=== PATIENT | female | born 1950 | race Caucasian/White ===

== ENCOUNTER 2017-03-22 06:31 | Day surgery (SDC) | payer MEDICARE, BC ==
[2017-03-22] MEDS ORDERED: Lactated Ringers 1,000 ML IV SCH (07:00)
[2017-03-22] MEDS ORDERED: Propofol 200 MG/20 ML SDV ONE (07:26)
[2017-03-22] MEDS ORDERED: fentaNYL 100 MCG/2 ML SDV ONE (07:26)
[2017-03-22] MEDS ORDERED: Midazolam 1 MG/ML 2 ML SDV ONE (07:27)
[2017-03-22 09:07] VITALS: BP 110/72
--- NOTE | 2017-03-23 07:42 | OR ---
DATE OF PROCEDURE: 03/22/2017 PREOPERATIVE DIAGNOSIS: Colon cancer screening. POSTOPERATIVE DIAGNOSIS: Unremarkable colonoscopy. PROCEDURE PERFORMED: Colonoscopy to the cecum. SURGEON: Omar De Luna MD. ANESTHESIA: IV anesthesia with monitored anesthesia care. INDICATION: This 66-year-old white female is referred for a colonoscopy for colon cancer screening. She says her last colonoscopic exam was done ten years ago. I counseled her for the procedure including the risks and alternatives, and she gave her informed consent to proceed. DESCRIPTION OF PROCEDURE: The patient was placed in the left lateral decubitus position. IV anesthesia was administered by the Anesthesia Service. Time-out was held. A rectal exam was performed, which was unremarkable. The flexible video Olympus colonoscope was introduced through her anus, up her rectum, and out her colon all the way to the cecum. Once the cecum was reached, the scope was slowly withdrawn, examining the mucosa throughout. No mucosal abnormalities were noted. The scope was retroflexed in the rectum with the distal rectum appearing unremarkable. The scope was straightened and removed. She tolerated the procedure well. Omar De Luna MD /[id number]
== END 2017-03-22 09:19 | disposition home or self-care (01) ==
LOC: JP.SDS 06:31
PROVIDERS: ATTEND Surgery
DX: Z12.11 Encounter for screening for malignant neoplasm of colon (principal); I10 Essential (primary) hypertension; E78.00 Pure hypercholesterolemia, unspecified; E20.9 Hypoparathyroidism, unspecified; E66.9 Obesity, unspecified; Z88.8 Allergy status to other drugs, medicaments and biological substances; Z90.710 Acquired absence of both cervix and uterus; Z87.891 Personal history of nicotine dependence; Z68.30 Body mass index [BMI] 30.0-30.9, adult
CPT/HCPCS: G0121; J2250; J2704; J3010; J7120

== ENCOUNTER 2022-07-17 05:47 | Day surgery (SDC) | payer MEDICARE ==
[2022-07-17] MEDS ORDERED: Lactated Ringers 1,000 ML IV SCH (06:30)
[2022-07-17] MEDS ORDERED: Propofol 200 MG/20 ML SDV ONE (06:56)
[2022-07-17] MEDS ORDERED: Midazolam 1 MG/ML 2 ML SDV ONE (06:56)
[2022-07-17] MEDS ORDERED: fentaNYL 50 MCG/ML SDV ONE (06:56)
[2022-07-17 08:27] VITALS: BP 125/71; PULSE 87
== END 2022-07-17 08:35 | disposition home or self-care (01) ==
LOC: JP.SDS 05:47
PROVIDERS: ATTEND Student in an Organized Health Care Education/Training Program
DX: Z12.11 Encounter for screening for malignant neoplasm of colon (principal); I10 Essential (primary) hypertension; E78.5 Hyperlipidemia, unspecified; E03.9 Hypothyroidism, unspecified; E66.9 Obesity, unspecified; M79.10 Myalgia, unspecified site; G62.9 Polyneuropathy, unspecified; Z68.31 Body mass index [BMI] 31.0-31.9, adult; Z79.899 Other long term (current) drug therapy; Z88.8 Allergy status to other drugs, medicaments and biological substances
CPT/HCPCS: 45378; J2250; J2704; J3010; J7120

== ENCOUNTER 2022-12-15 00:51 | Emergency (ER) | payer MEDICARE ==
[2022-12-15] MEDS ORDERED: Sodium Chloride 0.9% 10 ML Syringe FLUSH PRN (01:04)
[2022-12-15 01:17] LABS: BASOPHILS ABSOLUTE AUTO 0.04 K/uL (0.00-0.10); BASOPHILS PERCENT AUTO 1.3 % (0.1-1.3); HEMATOCRIT 37.4 % (34.3-46.0); HEMOGLOBIN 12.2 g/dL (11.2-15.5); IMMATURE GRAN PERCENT AUTO 0.3 % (0.0-0.7); LYMPHOCYTES ABSOLUTE AUTO 0.34 K/uL (0.8-3.3); LYMPHOCYTES PERCENT AUTO 10.6 % (11.4-47.7); MEAN CORPUSCULAR HEMOGLOBIN 31.4 pg (31.6-35.5); MEAN CORPUSCULAR HGB CONC 32.6 g/dL (31.6-35.5); MEAN CORPUSCULAR VOLUME 96.1 fL (81.4-99.0); MONOCYTES ABSOLUTE AUTO 0.35 K/uL (0.20-0.90); MONOCYTES PERCENT AUTO 10.9 % (3.3-12.6); NEUTROPHILS ABSOLUTE AUTO 2.46 K/uL (1.0-7.6); NEUTROPHILS PERCENT AUTO 76.9 % (40.0-78.1); PLATELET COUNT,PLT 138 K/uL (130-375); RED BLOOD CELL COUNT 3.89 M/uL (3.77-5.24); WHITE BLOOD CELL COUNT,WBC 3.2 K/uL (3.2-11.0)
[2022-12-15 01:23] LABS: IMMATURE GRAN ABSOLUTE AUTO 0.01 K/uL (0.00-0.23)
[2022-12-15 01:39] LABS: A/G RATIO 0.8 (1.2-2.2); ALANINE AMINOTRANSFERASE,ALT 29 U/L (12-78); ALBUMIN 2.4 g/dL (3.4-5.0); ALKALINE PHOSPHATASE 117 U/L (46-116); ASPARTATE AMNIOTRANSFERASE,AST 31 U/L (15-37); BILIRUBIN TOTAL 0.6 mg/dL (0.2-1.0); BLOOD UREA NITROGEN,BUN 15 mg/dL (7-18); C-REACTIVE PROTEIN 1.71 mg/dL (0.0-0.3); CALCIUM 7.7 mg/dL (8.5-10.1); CARBON DIOXIDE,CO2 26 mmol/L (21-32); CHLORIDE,CL 106 mmol/L (100-108); CREATININE 1.1 mg/dL (0.6-1.0); EST CRCL DRUG DOSING (CG) 42.82 mL/min; ESTIMATED GFR 54 mL/min (>60); GLUCOSE RANDOM 194 mg/dL (74-106); MAGNESIUM 1.9 mg/dL (1.8-2.4); PROTEIN TOTAL,TP 5.5 g/dL (6.4-8.2); SODIUM,NA 139 mmol/L (140-148)
[2022-12-15] MEDS: Sodium Chloride 0.9% 1,000 ML IV SCH ×2 (01:39→03:47)
[2022-12-15 01:42] LABS: LACTIC ACID 1.2 mmol/L (0.4-2.0)
[2022-12-15] MEDS ORDERED: Potassium Chloride 20 MEQ Tab.ER PO ONE (02:21)
[2022-12-15 02:58] LABS: HEMOGLOBIN A1C 5.4 % (4.5-6.2)
[2022-12-15] MEDS ORDERED: Sodium Chloride 0.9% 1,000 ML IV SCH (05:15)
[2022-12-15 07:11] LABS: APPEARANCE,URINE SLIGHTLY CLOUDY (CLEAR); BILIRUBIN,URINE NEGATIVE (NEGATIVE); COLOR,URINE YELLOW (YELLOW); GLUCOSE,URINE NEGATIVE (NEGATIVE); KETONES,URINE NEGATIVE (NEGATIVE); LEUKOCYTE ESTERASE,URINE SMALL (NEGATIVE); NITRITE,URINE NEGATIVE (NEGATIVE); OCCULT BLOOD,URINE TRACE-LYSED (NEGATIVE); PH,URINE 5.5 (5.0-8.0); PROTEIN,URINE 100 mg/dL (NEGATIVE); UROBILINOGEN,URINE 0.2 EU/dL (0.2-1.0)
[2022-12-15 07:20] LABS: AMORPHOUS SEDIMENT,URINE MANY; BACTERIA,URINE FEW; EPITHELIAL CELLS,URINE MANY; MUCUS,URINE MANY; RBC,URINE 0-5 (0-5)
[2022-12-15 07:44] LABS: LYME AB IgG Negative (Negative); LYME AB IgM Negative (Negative)
[2022-12-15 08:04] VITALS: BP 115/61; PULSE 82
[2022-12-18 15:12] LABS: BABESIA MICROTI IGG <1:10 (Neg:<1:10); BABESIA MICROTI IGM <1:10 (Neg:<1:10)
== END 2022-12-15 10:43 | disposition home or self-care (01) ==
LOC: JP.ED 00:51
DX: I67.89 Other cerebrovascular disease (principal); E86.0 Dehydration; M25.552 Pain in left hip; G89.29 Other chronic pain; E87.6 Hypokalemia; M06.9 Rheumatoid arthritis, unspecified; E78.00 Pure hypercholesterolemia, unspecified; I10 Essential (primary) hypertension; E66.9 Obesity, unspecified; Z88.8 Allergy status to other drugs, medicaments and biological substances; Z79.899 Other long term (current) drug therapy; Z68.31 Body mass index [BMI] 31.0-31.9, adult; Z20.822 Contact with and (suspected) exposure to COVID-19
CPT/HCPCS: 36415; 80053; 81001; 82009; 83036; 83605; 83735; 84145; 85025; 86140; 86618; 86666; 86753; 96360; 96361; 99285; A9270; J3490; J7030; U0002

== ENCOUNTER 2022-12-15 17:57 | Inpatient (IN) | payer MEDICARE ==
[2022-12-15 18:48] LABS: BASOPHILS ABSOLUTE AUTO 0.05 K/uL (0.00-0.10); BASOPHILS PERCENT AUTO 2.2 % (0.1-1.3); EOSINOPHILS PERCENT AUTO 0.4 % (0.0-5.4); HEMATOCRIT 36.9 % (34.3-46.0); HEMOGLOBIN 11.9 g/dL (11.2-15.5); IMMATURE GRAN PERCENT AUTO 0.4 % (0.0-0.7); LYMPHOCYTES ABSOLUTE AUTO 0.38 K/uL (0.8-3.3); LYMPHOCYTES PERCENT AUTO 16.5 % (11.4-47.7); MEAN CORPUSCULAR HGB CONC 32.2 g/dL (31.6-35.5); MEAN CORPUSCULAR VOLUME 96.1 fL (81.4-99.0); MONOCYTES ABSOLUTE AUTO 0.14 K/uL (0.20-0.90); MONOCYTES PERCENT AUTO 6.1 % (3.3-12.6); NEUTROPHILS ABSOLUTE AUTO 1.72 K/uL (1.0-7.6); NEUTROPHILS PERCENT AUTO 74.4 % (40.0-78.1); PLATELET COUNT,PLT 131 K/uL (130-375); RED BLOOD CELL COUNT 3.84 M/uL (3.77-5.24); WHITE BLOOD CELL COUNT,WBC 2.3 K/uL (3.2-11.0)
[2022-12-15 18:51] LABS: EOSINOPHILS ABSOLUTE AUTO 0.01 K/uL (0.00-0.40); IMMATURE GRAN ABSOLUTE AUTO 0.01 K/uL (0.00-0.23)
[2022-12-15 19:17] LABS: A/G RATIO 0.8 (1.2-2.2); ALANINE AMINOTRANSFERASE,ALT 30 U/L (12-78); ALBUMIN 2.4 g/dL (3.4-5.0); ALKALINE PHOSPHATASE 118 U/L (46-116); ANION GAP 10.3 mmol/L (5.0-14.0); ASPARTATE AMNIOTRANSFERASE,AST 36 U/L (15-37); BILIRUBIN TOTAL 0.6 mg/dL (0.2-1.0); BLOOD UREA NITROGEN,BUN 13 mg/dL (7-18); C-REACTIVE PROTEIN 2.47 mg/dL (0.0-0.3); CALCIUM 7.9 mg/dL (8.5-10.1); CARBON DIOXIDE,CO2 24 mmol/L (21-32); CHLORIDE,CL 107 mmol/L (100-108); CREATININE 0.8 mg/dL (0.6-1.0); ESTIMATED GFR 79 mL/min (>60); GLUCOSE RANDOM 120 mg/dL (74-106); POTASSIUM,K 3.3 mmol/L (3.6-5.2); PROTEIN TOTAL,TP 5.5 g/dL (6.4-8.2); SODIUM,NA 138 mmol/L (140-148)
[2022-12-15 21:00] LABS: APPEARANCE,URINE CLOUDY (CLEAR); BILIRUBIN,URINE NEGATIVE (NEGATIVE); COLOR,URINE YELLOW (YELLOW); GLUCOSE,URINE NEGATIVE (NEGATIVE); KETONES,URINE NEGATIVE (NEGATIVE); LEUKOCYTE ESTERASE,URINE MODERATE (NEGATIVE); NITRITE,URINE NEGATIVE (NEGATIVE); OCCULT BLOOD,URINE SMALL (NEGATIVE); PH,URINE 5.5 (5.0-8.0); PROTEIN,URINE TRACE mg/dL (NEGATIVE); UROBILINOGEN,URINE 0.2 EU/dL (0.2-1.0)
[2022-12-15] MEDS ORDERED: Pantoprazole 40 MG Vial IV SCH (21:00)
[2022-12-15 21:05] LABS: RBC,URINE 0-5 (0-5); WBC,URINE 75-100 (0-5)
[2022-12-15 21:06] LABS: AMORPHOUS SEDIMENT,URINE NOT SEEN; BACTERIA,URINE MODERATE; EPITHELIAL CELLS,URINE MODERATE; MUCUS,URINE FEW
[2022-12-15] MEDS ORDERED: Albuterol 0.083% 2.5 MG/3 ML Neb Soln NEB PRN (22:05)
[2022-12-15] MEDS ORDERED: oxyCODONE 5 MG Tab PO PRN (22:05)
[2022-12-15] MEDS ORDERED: Ondansetron 4 MG/2 ML SDV IV PRN (22:05)
[2022-12-15] MEDS ORDERED: Ondansetron 4 MG Tab.DIS PO PRN (22:05)
[2022-12-15] MEDS ORDERED: Albuterol/Ipratropium 3.0-0.5 MG/3 ML Neb Soln NEB PRN (22:05)
[2022-12-15] MEDS ORDERED: Bisacodyl 5 MG Tab PO PRN (22:05)
[2022-12-15] MEDS ORDERED: LORazepam 2 MG/ML SDV IV PRN (22:05)
[2022-12-15] MEDS ORDERED: Docusate Sodium 100 MG Cap PO PRN (22:05)
[2022-12-15] MEDS ORDERED: Potassium Chloride 10 MEQ in Premix Bag 1 BAG IV ONE (22:13)
[2022-12-15] MEDS ORDERED: Methotrexate 2.5 MG Tab PO SCH (22:15)
[2022-12-15] MEDS ORDERED: Enoxaparin 40 MG/0.4 ML Syringe SUBCUT SCH (22:15)
[2022-12-15] MEDS ORDERED: Sodium Chloride 0.9% 1,000 ML IV SCH (22:15)
[2022-12-15] MEDS ORDERED: atorvaSTATin 20 MG Tab PO SCH (22:15)
[2022-12-15] MEDS ORDERED: cefTRIAXone 1 GM in Sodium Chloride 0.9% 50 ML IV SCH (23:00)
[2022-12-15] MEDS: Levothyroxine 100 MCG Tab PO SCH (23:16)
[2022-12-15] MEDS: Folic Acid 1 MG Tab PO SCH (23:16)
[2022-12-15] MEDS: Melatonin 3 MG Tab PO SCH (23:17)
[2022-12-16 05:24] LABS: HEMATOCRIT 34.6 % (34.3-46.0); HEMOGLOBIN 11.4 g/dL (11.2-15.5); LYMPHOCYTES PERCENT AUTO 19.4 % (11.4-47.7); MEAN CORPUSCULAR HEMOGLOBIN 31.1 pg (31.6-35.5); MEAN CORPUSCULAR HGB CONC 32.9 g/dL (31.6-35.5); MEAN CORPUSCULAR VOLUME 94.5 fL (81.4-99.0); MONOCYTES ABSOLUTE AUTO 0.13 K/uL (0.20-0.90); MONOCYTES PERCENT AUTO 6.3 % (3.3-12.6); NEUTROPHILS ABSOLUTE AUTO 1.49 K/uL (1.0-7.6); NEUTROPHILS PERCENT AUTO 72.3 % (40.0-78.1); PLATELET COUNT,PLT 108 K/uL (130-375); RED BLOOD CELL COUNT 3.66 M/uL (3.77-5.24); WHITE BLOOD CELL COUNT,WBC 2.1 K/uL (3.2-11.0)
[2022-12-16 05:34] LABS: BASOPHILS ABSOLUTE AUTO 0.02 K/uL (0.00-0.10); IMMATURE GRAN ABSOLUTE AUTO 0.02 K/uL (0.00-0.23)
[2022-12-16 05:42] LABS: CALCIUM 7.5 mg/dL (8.5-10.1); CREATININE 0.8 mg/dL (0.6-1.0); EST CRCL DRUG DOSING (CG) 58.88 mL/min; POTASSIUM,K 3.2 mmol/L (3.6-5.2)
[2022-12-16 05:46] LABS: ANION GAP 10.2 mmol/L (5.0-14.0)
[2022-12-16] MEDS: Folic Acid 1 MG Tab PO SCH (09:27)
[2022-12-16] MEDS: Potassium Chloride 20 MEQ Tab.ER PO SCH (09:27)
[2022-12-16] MEDS: Hydrochlorothiazide 12.5 MG Cap PO SCH (09:27)
[2022-12-16] MEDS: Levothyroxine 100 MCG Tab PO SCH (09:27)
[2022-12-16] MEDS: Lisinopril 10 MG Tab PO SCH (09:28)
[2022-12-16] MEDS: Sodium Chloride 0.9% 1,000 ML IV SCH (11:02)
[2022-12-16] MEDS: Acetaminophen 325 MG Tab PO PRN ×3 (11:34→22:31)
[2022-12-16] MEDS: LEFLUNOMIDE 20 MG PO SCH ×2 (11:35→11:36)
[2022-12-16] MEDS ORDERED: Potassium Chloride 20 MEQ Tab.ER PO SCH (17:00)
[2022-12-16] MEDS ORDERED: Enoxaparin 40 MG/0.4 ML Syringe SUBCUT SCH (21:00)
[2022-12-16] MEDS: Melatonin 3 MG Tab PO SCH (21:04)
[2022-12-16] MEDS: atorvaSTATin 20 MG Tab PO SCH (21:05)
[2022-12-17 05:28] LABS: HEMATOCRIT 37.9 % (34.3-46.0); HEMOGLOBIN 12.3 g/dL (11.2-15.5); MEAN CORPUSCULAR HEMOGLOBIN 30.9 pg (31.6-35.5); MEAN CORPUSCULAR HGB CONC 32.5 g/dL (31.6-35.5); MEAN CORPUSCULAR VOLUME 95.2 fL (81.4-99.0); RED BLOOD CELL COUNT 3.98 M/uL (3.77-5.24); WHITE BLOOD CELL COUNT,WBC 2.2 K/uL (3.2-11.0)
[2022-12-17 05:42] LABS: CALCIUM 7.9 mg/dL (8.5-10.1); CREATININE 0.9 mg/dL (0.6-1.0); EST CRCL DRUG DOSING (CG) 52.34 mL/min
[2022-12-17] MEDS: Levothyroxine 100 MCG Tab PO SCH (07:14)
[2022-12-17] MEDS: Acetaminophen 325 MG Tab PO PRN ×4 (07:14→20:56)
[2022-12-17] MEDS: Sodium Chloride 0.9% 1,000 ML IV SCH (08:31)
[2022-12-17] MEDS: LEFLUNOMIDE 20 MG PO SCH (08:57)
[2022-12-17] MEDS: Folic Acid 1 MG Tab PO SCH (08:59)
[2022-12-17] MEDS: Lisinopril 10 MG Tab PO SCH (08:59)
[2022-12-17] MEDS: Hydrochlorothiazide 12.5 MG Cap PO SCH (08:59)
[2022-12-17] MEDS: Potassium Chloride 20 MEQ Tab.ER PO SCH (09:00)
[2022-12-17] MEDS ORDERED: Doxycycline 100 MG in Sodium Chloride 0.9% 100 ML IV SCH (09:00)
[2022-12-17 10:17] LABS: LYME AB IgG Negative (Negative); LYME AB IgM Negative (Negative)
[2022-12-17] MEDS: Melatonin 3 MG Tab PO SCH (20:56)
[2022-12-17] MEDS: Doxycycline 100 MG Cap PO SCH (20:56)
[2022-12-17] MEDS: atorvaSTATin 20 MG Tab PO SCH (20:56)
[2022-12-18] MEDS: Acetaminophen 325 MG Tab PO PRN ×3 (00:40→22:43)
[2022-12-18 06:22] LABS: HEMATOCRIT 34.2 % (34.3-46.0); HEMOGLOBIN 11.4 g/dL (11.2-15.5); MEAN CORPUSCULAR HEMOGLOBIN 31.1 pg (31.6-35.5); MEAN CORPUSCULAR HGB CONC 33.3 g/dL (31.6-35.5); MEAN CORPUSCULAR VOLUME 93.2 fL (81.4-99.0); RED BLOOD CELL COUNT 3.67 M/uL (3.77-5.24); WHITE BLOOD CELL COUNT,WBC 1.6 K/uL (3.2-11.0)
[2022-12-18 06:38] LABS: A/G RATIO 0.7 (1.2-2.2); ALANINE AMINOTRANSFERASE,ALT 32 U/L (12-78); ALBUMIN 1.9 g/dL (3.4-5.0); ALKALINE PHOSPHATASE 137 U/L (46-116); ASPARTATE AMNIOTRANSFERASE,AST 66 U/L (15-37); BILIRUBIN TOTAL 2.1 mg/dL (0.2-1.0); BLOOD UREA NITROGEN,BUN 8 mg/dL (7-18); CALCIUM 7.7 mg/dL (8.5-10.1); CARBON DIOXIDE,CO2 27 mmol/L (21-32); CHLORIDE,CL 107 mmol/L (100-108); CREATININE 0.8 mg/dL (0.6-1.0); EST CRCL DRUG DOSING (CG) 58.79 mL/min; ESTIMATED GFR 79 mL/min (>60); GLUCOSE RANDOM 88 mg/dL (74-106); POTASSIUM,K 3.6 mmol/L (3.6-5.2); PROTEIN TOTAL,TP 4.6 g/dL (6.4-8.2); SODIUM,NA 139 mmol/L (140-148)
[2022-12-18 06:41] LABS: ANION GAP 8.6 mmol/L (5.0-14.0)
[2022-12-18] MEDS: Levothyroxine 100 MCG Tab PO SCH (09:04)
[2022-12-18] MEDS: Potassium Chloride 20 MEQ Tab.ER PO SCH (09:06)
[2022-12-18] MEDS: Lisinopril 10 MG Tab PO SCH (09:06)
[2022-12-18] MEDS: Hydrochlorothiazide 12.5 MG Cap PO SCH (09:07)
[2022-12-18] MEDS: Folic Acid 1 MG Tab PO SCH (09:07)
[2022-12-18] MEDS: LEFLUNOMIDE 20 MG PO SCH (09:07)
[2022-12-18] MEDS: Doxycycline 100 MG Cap PO SCH ×2 (09:08→21:35)
[2022-12-18 18:12] LABS: BANDS 6 % (Not Estab.); BASOS 1 % (Not Estab.); EOS 0 % (Not Estab.); HEMATOCRIT 38.7 % (34.0-46.6); HEMATOLOGY COMMENTS: Note: (.); HEMOGLOBIN 12.6 g/dL (11.1-15.9); IMMATURE CELLS Note (.); LYMPHS 19 % (Not Estab.); LYMPHS (ABSOLUTE) 0.4 x10E3/uL (0.7-3.1); MCH 31.7 pg (26.6-33.0); MCHC 32.6 g/dL (31.5-35.7); MCV 97 fL (79-97); METAMYELOCYTES 4 % (0 - 0); MONOCYTES 2 % (Not Estab.); MYELOCYTES 1 % (0 - 0); NEUTROPHILS 67 % (Not Estab.); NEUTROPHILS (ABSOLUTE) 1.5 x10E3/uL (1.4-7.0); PLATELETS 89 x10E3/uL (150-450); RBC 3.98 x10E6/uL (3.77-5.28); RBC Appear normal. (.); RDW 15.2 % (11.7-15.4); WBC 2.1 x10E3/uL (3.4-10.8)
[2022-12-18] MEDS: Melatonin 3 MG Tab PO SCH (21:35)
[2022-12-18] MEDS: atorvaSTATin 20 MG Tab PO SCH (21:35)
[2022-12-19] MEDS: Levothyroxine 100 MCG Tab PO SCH (07:41)
[2022-12-19] MEDS: Folic Acid 1 MG Tab PO SCH (08:59)
[2022-12-19] MEDS: Doxycycline 100 MG Cap PO SCH ×2 (08:59→20:38)
[2022-12-19] MEDS: Hydrochlorothiazide 12.5 MG Cap PO SCH (08:59)
[2022-12-19] MEDS ORDERED: Methotrexate 2.5 MG Tab PO SCH ×2 (09:00→21:00)
[2022-12-19] MEDS: Potassium Chloride 20 MEQ Tab.ER PO SCH (09:00)
[2022-12-19] MEDS: LEFLUNOMIDE 20 MG PO SCH (09:00)
[2022-12-19] MEDS: Lisinopril 10 MG Tab PO SCH (09:01)
[2022-12-19 10:18] LABS: HEMATOCRIT 37.7 % (34.3-46.0); HEMOGLOBIN 12.6 g/dL (11.2-15.5); MEAN CORPUSCULAR HGB CONC 33.4 g/dL (31.6-35.5); MEAN CORPUSCULAR VOLUME 92.9 fL (81.4-99.0); RED BLOOD CELL COUNT 4.06 M/uL (3.77-5.24); WHITE BLOOD CELL COUNT,WBC 3.8 K/uL (3.2-11.0)
[2022-12-19] MEDS: Acetaminophen 325 MG Tab PO PRN (10:25)
[2022-12-19] MEDS ORDERED: Ketorolac 15 MG/ML SDV IVPUSH ONE (11:00)
[2022-12-19] MEDS: Melatonin 3 MG Tab PO SCH (20:35)
[2022-12-19] MEDS: atorvaSTATin 20 MG Tab PO SCH (20:35)
[2022-12-20 05:12] LABS: HEMATOCRIT 31.7 % (34.3-46.0); HEMOGLOBIN 10.6 g/dL (11.2-15.5); MEAN CORPUSCULAR HEMOGLOBIN 30.7 pg (31.6-35.5); MEAN CORPUSCULAR HGB CONC 33.4 g/dL (31.6-35.5); MEAN CORPUSCULAR VOLUME 91.9 fL (81.4-99.0); RED BLOOD CELL COUNT 3.45 M/uL (3.77-5.24); WHITE BLOOD CELL COUNT,WBC 3.4 K/uL (3.2-11.0)
[2022-12-20] MEDS: Levothyroxine 100 MCG Tab PO SCH (08:08)
[2022-12-20] MEDS: Hydrochlorothiazide 12.5 MG Cap PO SCH (08:09)
[2022-12-20] MEDS: Potassium Chloride 20 MEQ Tab.ER PO SCH (08:09)
[2022-12-20] MEDS: Folic Acid 1 MG Tab PO SCH (08:09)
[2022-12-20] MEDS: Doxycycline 100 MG Cap PO SCH (08:10)
[2022-12-20] MEDS: Lisinopril 10 MG Tab PO SCH (08:10)
[2022-12-20] MEDS: LEFLUNOMIDE 20 MG PO SCH (08:10)
[2022-12-20 10:00] VITALS: BP 135/80; PULSE 85
[2022-12-20 11:54] LABS: HEMATOCRIT 33.8 % (34.3-46.0); HEMOGLOBIN 11.2 g/dL (11.2-15.5); MEAN CORPUSCULAR HEMOGLOBIN 30.9 pg (31.6-35.5); MEAN CORPUSCULAR HGB CONC 33.1 g/dL (31.6-35.5); MEAN CORPUSCULAR VOLUME 93.1 fL (81.4-99.0); RED BLOOD CELL COUNT 3.63 M/uL (3.77-5.24); WHITE BLOOD CELL COUNT,WBC 2.7 K/uL (3.2-11.0)
== END 2022-12-20 13:00 | disposition home or self-care (01) | DRG 868 ==
LOC: JP.ED 17:57 → JP.ICU 21:12
PROVIDERS: ADMIT Internal Medicine; ATTEND Internal Medicine
DX: A79.82 Anaplasmosis [A. phagocytophilum] (principal); D84.821 Immunodeficiency due to drugs; N30.00 Acute cystitis without hematuria; M05.79 Rheumatoid arthritis with rheumatoid factor of multiple sites without organ or systems involvement; F01.B0 Vascular dementia, moderate, without behavioral disturbance, psychotic disturbance, mood disturbance, and anxiety; E78.00 Pure hypercholesterolemia, unspecified; I10 Essential (primary) hypertension; E66.9 Obesity, unspecified; E89.0 Postprocedural hypothyroidism; Z66 Do not resuscitate; R62.7 Adult failure to thrive; E87.6 Hypokalemia; M25.552 Pain in left hip; G89.29 Other chronic pain; I25.10 Atherosclerotic heart disease of native coronary artery without angina pectoris; B96.89 Other specified bacterial agents as the cause of diseases classified elsewhere; E86.0 Dehydration; D69.6 Thrombocytopenia, unspecified; R74.01 Elevation of levels of liver transaminase levels; D72.819 Decreased white blood cell count, unspecified; Z90.10 Acquired absence of unspecified breast and nipple; Z88.8 Allergy status to other drugs, medicaments and biological substances; Z79.899 Other long term (current) drug therapy; Z85.3 Personal history of malignant neoplasm of breast; Z90.89 Acquired absence of other organs; Z90.710 Acquired absence of both cervix and uterus; Z68.33 Body mass index [BMI] 33.0-33.9, adult
CPT/HCPCS: 36415; 70450; 80048; 80053; 81001; 83735; 85025; 85027; 85060; 86140; 86618; 86666; 87086; 97110-GP; 97161-GP; 97165-GO; 97530-GP; 99285; A9270-GY; C9113; J0696; J0713; J1650; J1885; J3480; J3490; J7030; J8610

== ENCOUNTER 2023-07-05 01:41 | Emergency (ER) | payer MEDICARE ==
[2023-07-05] MEDS ORDERED: Sodium Chloride 0.9% 1,000 ML IV SCH ×2 (02:45→06:15)
[2023-07-05 03:26] LABS: HEMATOCRIT 43.9 % (34.3-46.0); HEMOGLOBIN 14.5 g/dL (11.2-15.5); MEAN CORPUSCULAR HEMOGLOBIN 31.2 pg (31.6-35.5); MEAN CORPUSCULAR VOLUME 94.4 fL (81.4-99.0); RED BLOOD CELL COUNT 4.65 M/uL (3.77-5.24); WHITE BLOOD CELL COUNT,WBC 13.2 K/uL (3.2-11.0)
[2023-07-05 03:51] LABS: POTASSIUM,ISTAT 3.3 mmol/L (3.5-4.9); SODIUM,ISTAT 142 mmol/L (140-148)
[2023-07-05 03:52] LABS: CALCIUM IONIZED,ISTAT 0.77 mmol/L (1.12-1.32); HEMATOCRIT,ISTAT 44 % (36-48)
[2023-07-05 03:53] LABS: BASE EXCESS CAPILLARY,ISTAT 0 mmol/L; HCO3 CAPILLARY,ISTAT 24.7 mmol/L (23.0-28.0); PH CAPILLARY,ISTAT 7.41 (7.31-7.41); PO2 CAPILLARY,ISTAT 27 mmHg; TCO2 CAPILLARY,ISTAT 26 mmol/L (24-29)
[2023-07-05] MEDS ORDERED: Potassium Chloride 20 MEQ Tab.ER PO ONE (04:04)
[2023-07-05 04:08] LABS: CREATININE 1.4 mg/dL (0.6-1.0); EST CRCL DRUG DOSING (CG) 35.84 mL/min
[2023-07-05] MEDS ORDERED: Ondansetron 4 MG/2 ML SDV IVPUSH ONE (05:01)
[2023-07-05 05:35] VITALS: BP 150/80; PULSE 92
[2023-07-05 05:43] LABS: CORONAVIRUS COVID-19 NAA NEGATIVE (NEGATIVE); INFLUENZA A NAA NEGATIVE (NEGATIVE); INFLUENZA B NAA NEGATIVE (NEGATIVE); RESPIRATORY SYNCYTIAL VIR NAA NEGATIVE (NEGATIVE)
[2023-07-05 07:36] LABS: APPEARANCE,URINE SLIGHTLY CLOUDY (CLEAR); BILIRUBIN,URINE MODERATE (NEGATIVE); COLOR,URINE YELLOW (YELLOW); GLUCOSE,URINE NEGATIVE (NEGATIVE); KETONES,URINE NEGATIVE (NEGATIVE); LEUKOCYTE ESTERASE,URINE NEGATIVE (NEGATIVE); NITRITE,URINE NEGATIVE (NEGATIVE); OCCULT BLOOD,URINE NEGATIVE (NEGATIVE); PROTEIN,URINE 100 mg/dL (NEGATIVE)
[2023-07-05 07:50] LABS: AMORPHOUS SEDIMENT,URINE FEW; BACTERIA,URINE FEW; EPITHELIAL CELLS,URINE MODERATE; MUCUS,URINE NOT SEEN; RBC,URINE 0-5 (0-5); WBC,URINE 0-5 (0-5)
== END 2023-07-05 09:16 | disposition home or self-care (01) ==
LOC: JP.ED 01:41
DX: R11.2 Nausea with vomiting, unspecified (principal); R10.84 Generalized abdominal pain; E78.00 Pure hypercholesterolemia, unspecified; E03.9 Hypothyroidism, unspecified; I10 Essential (primary) hypertension; E66.9 Obesity, unspecified; Z79.899 Other long term (current) drug therapy; Z88.8 Allergy status to other drugs, medicaments and biological substances
CPT/HCPCS: 0241U; 36415; 81001; 82330; 82565; 82803; 82947; 84132; 84295; 85014; 85027; 96361; 96374; 99284; A9270; J2405; J7030